=== PATIENT | male | born 1975 ===

== ENCOUNTER 2022-04-25 21:52 | Emergency (ER) | payer SELFPAY ==
[2022-04-25 23:42] VITALS: BP 134/78
== END 2022-04-26 04:45 | disposition left against medical advice (07) ==
LOC: ED 21:52
DX: K08.89 Other specified disorders of teeth and supporting structures (principal); Z53.21 Procedure and treatment not carried out due to patient leaving prior to being seen by health care provider

== ENCOUNTER 2022-06-05 22:52 | Emergency (ER) | payer SELFPAY | END 2022-06-06 06:00 | disposition left against medical advice (07) | LOC: ED 22:52 | DX: F41.9 Anxiety disorder, unspecified (principal); Z53.21 Procedure and treatment not carried out due to patient leaving prior to being seen by health care provider ==